=== PATIENT | male | born 1960 | race Caucasian/White ===

== ENCOUNTER → 2016-07-05 | Outpatient (CLI) | payer BC ==
[~2016-07-05] MED LIST: AMLO-147 PO; ASPI325T32 PO; CLON-379 PO; HYDR-3498 PO; TRAM50TA2 PO
--- NOTE | 2016-07-05 15:48 | RADRPT ---
PROCEDURE: Left knee radiographs. CLINICAL INDICATION: Left knee pain. Postop. TECHNIQUE: Three views. Weight bearing. Frontal, lateral, and patellar view. COMPARISON: 03/24/2016. FINDINGS: There is no fracture or dislocation. There is a joint effusion. There is a total left knee arthroplasty which appears satisfactory. There is no lytic or blastic lesion. Vascular calcifications are present consistent with atherosclerosis. IMPRESSION: 1. Joint effusion. 2. Atherosclerosis. 3. Otherwise unchanged postoperative appearance of the left knee. RPTAT: QQ .Geoffrey Nur MD, MD Date Time Electronically viewed and signed by .Geoffrey Nur MD, MD on 07/05/2016 15:48 .R/
== END | disposition home or self-care (01) ==
LOC: HKI 09:44
PROVIDERS: ATTEND Orthopaedic Surgery
DX: Z47.1 Aftercare following joint replacement surgery (principal); Z96.652 Presence of left artificial knee joint
CPT/HCPCS: 73562; G0463

== ENCOUNTER → 2016-10-13 | Outpatient (CLI) | payer BC ==
--- NOTE | 2016-10-13 12:39 | RADRPT ---
PROCEDURE: XR left knee. CLINICAL INDICATION: Knee pain. TECHNIQUE: AP weightbearing, lateral weightbearing and sunrise views are available for review. COMPARISON: 07/05/2016 FINDINGS: There is a total knee replacement. There is no evidence of loosening of the prosthesis. There is no evidence of hardware failure. The osseous structures are normal in mineralization, architecture and alignment No acute fracture or dislocation is seen.No osseous lesions are identified. The soft tiss ues are unremarkable . there is a small suprapatellar joint effusion. IMPRESSION: Unremarkable total knee replacement. Small suprapatellar joint effusion RPTAT: [facility] .Vasyl Posey MD, MD Date Time Electronically viewed and signed by .Vasyl Posey MD, on 10/13/2016 12:39 .B/
== END | disposition home or self-care (01) ==
LOC: HKI 10:30
PROVIDERS: ATTEND Orthopaedic Surgery
DX: Z47.89 Encounter for other orthopedic aftercare (principal); Z96.652 Presence of left artificial knee joint
CPT/HCPCS: 73562; G0463

== ENCOUNTER → 2017-01-03 | Outpatient (CLI) | payer BC ==
--- NOTE | 2017-01-04 10:57 | RADRPT ---
PROCEDURE: LEFT KNEE X-RAY, 5 views CLINICAL INDICATION: PAIN TECHNIQUE: AP, lateral, sunrise, and lateral weightbearing views views of the knee were obtained. COMPARISON: Plain radiographs of the left knee from 10/13/2016 FINDINGS: No acute fracture or dislocation is seen. There is normal mineralization. A total left knee prosthesis is again noted in near anatomic alignment without evidence of hardware loosening. There is no joint effusion. Prominent atherosclerotic calcifications of the distal superficial femoral artery, popliteal artery, and infrapopliteal arteries are noted. IMPRESSION: Redemonstration of a total left knee prosthesis in near anatomic alignment. Prominent atherosclerotic vascular calcifications, as above. RPTAT: EE Physician Yosi Date Time Electronically viewed and signed by Physician Yosi on 01/04/2017 08:21 /
== END | disposition home or self-care (01) ==
LOC: HKI 09:58
PROVIDERS: ATTEND Orthopaedic Surgery
DX: Z47.89 Encounter for other orthopedic aftercare (principal); Z96.652 Presence of left artificial knee joint
CPT/HCPCS: 73562; G0463